=== PATIENT | female | born 1975 | race Caucasian/White ===

== ENCOUNTER 2021-02-05 08:22 | Outpatient (REF) | payer OTHER, SELFPAY ==
[2021-02-05 10:02] LABS: Alanine Aminotransferase 41 U/L (0-31); Aspartate Amino Transferase 26 U/L (5-31); Cholesterol 251 mg/dL; Glucose Fasting 129 mg/dL (60-99); HDL Cholesterol 42 mg/dL; LDL Cholesterol Calculated 178 mg/dl; Triglycerides 155 mg/dL
[2021-02-05 10:03] LABS: Estimated Average Glucose 123 mg/dL; Hemoglobin A1C 149.9442 umol/L; Hemoglobin A1c % 5.9 %
[2021-02-05 10:16] LABS: Thyroid Stimulating Hormone 0.57 uIU/mL (0.32-4.0)
[2021-02-05 14:37] LABS: Creatinine Urine 184.67 mg/dL; Microalbum/Creatinine Ratio Ur 12.4 ug/mg cr
== END 2021-02-05 08:23 | disposition home or self-care (01) ==
LOC: HO.10HDL 08:22
PROVIDERS: Absent Provider Internal Medicine Endocrinology, Diabetes & Metabolism; Visit Provider Family Medicine
DX: E03.9 Hypothyroidism, unspecified (principal); E11.9 Type 2 diabetes mellitus without complications; I10 Essential (primary) hypertension; Z79.899 Other long term (current) drug therapy
CPT/HCPCS: 36415; 80061; 82043; 82550; 82947; 83036; 84443; 84450; 84460

== ENCOUNTER 2021-08-06 07:51 | Outpatient (REF) | payer OTHER, SELFPAY ==
[2021-08-06 10:36] LABS: Alanine Aminotransferase 37 U/L (0-31); Aspartate Amino Transferase 26 U/L (5-31); Glucose Fasting 123 mg/dL (60-99)
[2021-08-06 10:58] LABS: Free T4 (Free Thyroxine) 1.24 ng/dL (0.71-1.85); Thyroid Stimulating Hormone 0.98 uIU/mL (0.32-4.0)
[2021-08-06 12:18] LABS: Estimated Average Glucose 134 mg/dL; Hemoglobin A1c % 6.3 %
[2021-08-09 19:41] LABS: Triiodothyronine T3 Total 133 ng/dL (76-181)
== END 2021-08-06 07:52 | disposition home or self-care (01) ==
LOC: HO.10HDL 07:51
PROVIDERS: Visit Provider Family Medicine
DX: R79.89 Other specified abnormal findings of blood chemistry (principal); E11.9 Type 2 diabetes mellitus without complications; E05.90 Thyrotoxicosis, unspecified without thyrotoxic crisis or storm
CPT/HCPCS: 36415; 82947; 83036; 84439; 84443; 84450; 84460; 84480

== ENCOUNTER 2021-08-13 08:51 | Outpatient (REF) | payer OTHER, SELFPAY ==
--- NOTE | ~2021-08-13 | XR_ITS ---
EXAMINATION: XR WRIST, LEFT CLINICAL INFORMATION: Injury COMPARISON: None TECHNIQUE: 4 views of the left wrist. FINDINGS: The bones and soft tissues are normal. No fracture. Alignment is anatomic with normal joint spaces. No erosions or abnormal soft tissue calcifications. XR/XR wrist LT min 3V IMPRESSION: Normal left wrist.
== END 2021-08-13 08:52 | disposition home or self-care (01) ==
LOC: HO.XRAY 08:51
PROVIDERS: PCP Family Medicine; Visit Provider Family Medicine
DX: S69.92XD Unspecified injury of left wrist, hand and finger(s), subsequent encounter (principal)
CPT/HCPCS: 73110